=== PATIENT | male | born 1990 | race African-American/Black ===

== ENCOUNTER 2018-07-25 22:12 | Emergency (ER) | payer SELFPAY ==
[~2018-07-25] VITALS: Ht 177.8 cm; Wt 97.0 kg
[2018-07-26 00:25] VITALS: BP 122/89
== END 2018-07-26 00:31 | disposition home or self-care (01) ==
LOC: ER 22:12
DX: S39.012A Strain of muscle, fascia and tendon of lower back, initial encounter (principal); M79.18 Myalgia, other site; V43.52XA Car driver injured in collision with other type car in traffic accident, initial encounter; Y93.89 Activity, other specified; Y92.410 Unspecified street and highway as the place of occurrence of the external cause
CPT/HCPCS: 99282

== ENCOUNTER 2019-05-29 12:40 | Emergency (ER) | payer SELFPAY ==
[~2019-05-29] VITALS: Ht 172.7 cm; Wt 109.0 kg
[2019-05-29] MEDS ORDERED: ONDANSETRON HCL 4MG/2ML INJ IV STA (14:42)
[2019-05-29] MEDS ORDERED: KETOROLAC 30MG/ML VIAL IV STA (14:42)
[2019-05-29] MEDS ORDERED: FAMOTIDINE 20MG/2ML VIAL IV STA (14:42)
[2019-05-29] MEDS ORDERED: SODIUM CHLORIDE 0.9% 1,000 ML IV ONE (14:42)
[2019-05-29 15:33] LABS: CHLORIDE 102 mEq/L (98-107)
[2019-05-29 15:35] LABS: BASOPHILS % 0.3 % (0.0-2.0); HEMATOCRIT. 41.3 % (42.0-52.0); HEMOGLOBIN. 13.5 g/dL (14.0-18.0); LYMPHOCYTES % 7.6 % (20.0-50.0); MEAN CORPUSCULAR HEMOGLOBIN 22.3 pg (28.0-32.0); MEAN CORPUSCULAR VOLUME 68.3 fL (80.0-94.0); MEAN PLATELET VOLUME 7.6 fl (7.4-10.4); MONOCYTES % 2.5 % (2.0-8.0); NEUTROPHILS % 89.6 % (40.0-76.0); PLATELET 383 x1000/uL (130-400); RED BLOOD CELL COUNT 6.05 mill/uL (4.7-6.1); RED CELL DISTRIBUTION WIDTH 15.7 % (11.6-14.6)
[2019-05-29 15:36] LABS: PROTHROMBIN TIME 10.5 sec (9.6-11.0)
[2019-05-29] MEDS ORDERED: POTASSIUM CHLORIDE 20MEQ TABLET SR PO ONE (16:00)
[2019-05-29] MEDS ORDERED: ONDANSETRON HCL 4MG/2ML INJ IV ONE (16:15)
[2019-05-29] MEDS ORDERED: HALOPERIDOL LACTATE 5MG/ML VIAL IM ONE (16:15)
[2019-05-29 16:32] LABS: PLATELET ESTIMATE NORMAL
[2019-05-29 16:40] LABS: CLARITY URINE CLEAR (CLEAR); COLOR URINE YELLOW (YELLOW); KETONES URINE 2+ (NEGATIVE); LEUKOCYTE ESTERASE URINE NEGATIVE (NEGATIVE); NITRITE URINE NEGATIVE (NEGATIVE); OCCULT BLOOD URINE NEGATIVE (NEGATIVE); PROTEIN URINE TRACE (NEGATIVE); SPECIFIC GRAVITY URINE 1.017 (1.005-1.030); UROBILINOGEN URINE 0.2 E.U./dL (0.2-1.0)
[2019-05-29 18:38] VITALS: BP 145/96
== END 2019-05-29 19:08 | disposition home or self-care (01) ==
LOC: ER 12:40
DX: R11.2 Nausea with vomiting, unspecified (principal); E86.0 Dehydration; F12.10 Cannabis abuse, uncomplicated
CPT/HCPCS: 36415; 80053; 81003; 83690; 85025; 85610; 96372; 96374; 96375; 96376; 99283; J1630; J1885; J2405; J3490; J7030

== ENCOUNTER 2019-05-31 09:52 | Emergency (ER) | payer SELFPAY ==
[~2019-05-31] VITALS: Ht 172.7 cm; Wt 100.0 kg
[2019-05-31 14:02] VITALS: BP 139/114
== END 2019-05-31 17:23 | disposition left against medical advice (07) ==
LOC: ER 09:52
DX: R11.2 Nausea with vomiting, unspecified (principal); Z53.21 Procedure and treatment not carried out due to patient leaving prior to being seen by health care provider